=== PATIENT | female | born 1960 | race Caucasian/White ===

== ENCOUNTER 2019-05-18 16:57 | Inpatient (IN) | payer MEDICARE ==
[~2019-05-18] VITALS: Ht 162.6 cm; Wt 123.9 kg
[2019-05-18 18:03] LABS: RAPID INFLUENZA A Negative (Negative); RAPID INFLUENZA B Negative (Negative)
--- NOTE | 2019-05-18 18:09 | NUR ---
pt reports multi events of syncope or near syncope today has reported hx of chf noted avtar rate of 50 on monitor and hypotensive of 91/60
[2019-05-18 18:32] LABS: MEAN CORPUSCULAR HEMOGLOBIN 30.9 pg (27.0-34.8); MEAN CORPUSCULAR HGB CONC 33.9 g/dL (32.4-35.8); MEAN CORPUSCULAR VOLUME 91.1 fL (80-100); MEAN PLATELET VOLUME 7.7 fL (7.4-10.4); PLATELET COUNT 196 x10^3/uL (130-400); RED BLOOD COUNT 5.01 x10^6/uL (3.82-5.3); RED CELL DISTRIBUTION WIDTH 14.1 % (9.6-15.2)
[2019-05-18 18:34] LABS: BASOPHILS # (AUTO) 0.09 x10^3/uL (0-0.1); BASOPHILS % (AUTO) 1 % (0-1); EOSINOPHILS # (AUTO) 0.08 x10^3/uL (0-0.4); EOSINOPHILS % (AUTO) 1 % (1-7); LYMPHOCYTES # (AUTO) 2.94 x10^3/uL (1-3.4); LYMPHOCYTES % (AUTO) 21 % (22-44); MD NO; MONOCYTES # (AUTO) 1.36 x10^3/uL (0.2-0.8); MONOCYTES % (AUTO) 10 % (2-9); NEUTROPHILS % (AUTO) 68 % (42-75)
--- NOTE | 2019-05-18 18:36 | NUR ---
ERP TO THE BS AT THIS TIME
[2019-05-18 18:40] LABS: ALANINE AMINOTRANSFERASE 30 U/L (12-78); ALBUMIN 3.9 g/dL (3.4-5.0); ANION GAP 8 mmol/L (5-15); CALCIUM 9.1 mg/dL (8.5-10.1); CHLORIDE 107 mmol/L (98-107); CREATININE 1.67 mg/dL (0.55-1.02)
[2019-05-18 18:45] LABS: ALKALINE PHOSPHATASE 74 U/L (45-117); BILIRUBIN,TOTAL 0.6 mg/dL (0.2-1.0); TOTAL PROTEIN 8.3 g/dL (6.4-8.2); TROPONIN I < 0.015 ng/mL (0.000-0.045)
--- NOTE | 2019-05-18 18:53 | NUR ---
REPORT REC, VS UPDATED
[2019-05-18] MEDS ORDERED: ONDANSETRON 2MG/ML, 2ML IVPush ONE (19:00)
[2019-05-18] MEDS ORDERED: SODIUM CHLORIDE 0.9% 1,000ML IVBOLUS ONE ×2 (19:00→22:00)
[2019-05-18] MEDS ORDERED: DIPHENHYDRAMINE 50 MG/ML, 1ML IVPush ONE (19:00)
[2019-05-18] MEDS ORDERED: METOCLOPRAMIDE 5 MG/ML, 2ML IVPush ONE (19:00)
[2019-05-18] MEDS ORDERED: ONDANSETRON 2MG/ML, 2ML ONE (19:23)
[2019-05-18] MEDS ORDERED: DIPHENHYDRAMINE 50 MG/ML, 1ML ONE (19:23)
[2019-05-18] MEDS ORDERED: METOCLOPRAMIDE 5 MG/ML, 2ML ONE (19:23)
--- NOTE | 2019-05-18 20:58 | NUR ---
UNSUCCESSFUL MINI CATH, WILL ATTEMPT AGAIN. PT REMAINS HYPOTENSIVE, AA AND O TIMES 4, PULSES PRESENT THROUGHOUT, IV VERY POSITIONAL, ENCOURAGE TO KEEP HEAD TURNED, BED REPOSITIONED TO WATCH TV AND GRANDDAUGHTER ON BOARD.
[2019-05-18 22:42] LABS: MICROSCOPIC AUTO
--- NOTE | 2019-05-18 22:42 | NUR ---
URINE SENT, FLUIDS INFUSING, PT EATING AND STATES THAT SHE IS FEELING BETTER AT THIS TIME
[2019-05-18 22:44] LABS: CULTURE INDICATED? YES
[2019-05-18] MEDS ORDERED: CIPROFLOXACIN/PMX 400MG/200ML 200 ML ONE (23:01)
[2019-05-18] MEDS ORDERED: ONDANSETRON ODT 4 MG PO PRN (23:30)
[2019-05-18] MEDS ORDERED: POLYETHYLENE GLYCOL 17 GM PACKET PO PRN (23:30)
[2019-05-18] MEDS ORDERED: ACETAMINOPHEN 325 MG TABLET PO PRN (23:30)
[2019-05-18] MEDS ORDERED: CIPROFLOXACIN/PMX 400MG/200ML 200 ML IV ONE (23:30)
[2019-05-18] MEDS ORDERED: BISACODYL 10 MG SUPP PR PRN (23:30)
[2019-05-18] MEDS ORDERED: OXYC-302 PO (23:34)
[2019-05-18] MEDS ORDERED: QUET100T4 PO (23:36)
[2019-05-18] MEDS ORDERED: GABA600T7 PO (23:36)
[2019-05-19 00:43] VITALS: BP 118/72
[2019-05-19] MEDS: QUETIAPINE 100MG TABLET PO SCH ×2 (00:52→20:13)
[2019-05-19] MEDS: GABAPENTIN 300 MG CAPSULE PO SCH ×3 (00:52→20:13)
[2019-05-19] MEDS: OXYcodone IR 5MG TABLET PO PRN ×6 (00:53→22:27)
[2019-05-19] MEDS: HEPARIN 5,000 UNITS/ML, 1ML SQ SCH ×4 (00:54→23:33)
[2019-05-19] MEDS: SODIUM CHLORIDE 0.9% 1,000 ML IV SCH ×3 (00:54→20:21)
[2019-05-19 06:02] LABS: ANION GAP 3 mmol/L (5-15); CALCIUM 8.2 mg/dL (8.5-10.1); CHLORIDE 111 mmol/L (98-107); CREATININE 1.18 mg/dL (0.55-1.02)
[2019-05-19 06:03] LABS: BASOPHILS # (AUTO) 0.07 x10^3/uL (0-0.1); BASOPHILS % (AUTO) 1 % (0-1); EOSINOPHILS # (AUTO) 0.18 x10^3/uL (0-0.4); EOSINOPHILS % (AUTO) 2 % (1-7); LYMPHOCYTES # (AUTO) 3.02 x10^3/uL (1-3.4); LYMPHOCYTES % (AUTO) 40 % (22-44); MD NO; MEAN CORPUSCULAR HEMOGLOBIN 31.1 pg (27.0-34.8); MEAN CORPUSCULAR VOLUME 91.5 fL (80-100); MEAN PLATELET VOLUME 7.5 fL (7.4-10.4); MONOCYTES # (AUTO) 0.61 x10^3/uL (0.2-0.8); MONOCYTES % (AUTO) 8 % (2-9); NEUTROPHILS # (AUTO) 3.73 x10^3/uL (1.8-6.8); NEUTROPHILS % (AUTO) 49 % (42-75); PLATELET COUNT 151 x10^3/uL (130-400); RED BLOOD COUNT 4.55 x10^6/uL (3.82-5.3)
[2019-05-19 07:24] VITALS: BP 138/68
[2019-05-19] MEDS: SENNA/DOCUSATE TABLET PO SCH (07:59)
[2019-05-19 10:43] LABS: MICROSCOPIC AUTO
[2019-05-19 10:47] LABS: CULTURE INDICATED? YES
[2019-05-19] MEDS: PROMETHAZINE 25 MG/ML, 1ML IM PRN ×2 (11:07→20:15)
[2019-05-19] MEDS ORDERED: TIZA4CAP PO (12:25)
[2019-05-19] MEDS ORDERED: TIZANIDINE 4MG TABLET PO PRN (13:30)
[2019-05-19 13:36] VITALS: BP 177/99
[2019-05-19] MEDS: ONDANSETRON 2MG/ML, 2ML IVPush PRN (14:55)
[2019-05-19] MEDS ORDERED: BUTA1CAP59 PO (17:10)
[2019-05-19 19:49] VITALS: BP 175/99
[2019-05-19 20:24] VITALS: BP 174/110
[2019-05-19] MEDS ORDERED: hydrALAzine 20 MG/ML, 1ML IV ONE (20:30)
[2019-05-19] MEDS ORDERED: BUTALB/APAP/CAFFEINE 50MG/325MG/40MG ONE (21:24)
[2019-05-19 21:30] VITALS: BP 168/75
[2019-05-19] MEDS: BUTALB/APAP/CAFFEINE 50MG/325MG/40MG PO PRN (21:35)
[2019-05-19] MEDS ORDERED: LEVOFLOXACIN/PMX 500MG/100ML 100 ML IV SCH (22:00)
[2019-05-20 01:55] VITALS: BP 147/90
[2019-05-20] MEDS: OXYcodone IR 5MG TABLET PO PRN ×3 (03:19→18:21)
[2019-05-20] MEDS: BUTALB/APAP/CAFFEINE 50MG/325MG/40MG PO PRN ×3 (04:41→19:37)
[2019-05-20] MEDS: SODIUM CHLORIDE 0.9% 1,000 ML IV SCH ×2 (04:41→19:38)
[2019-05-20] MEDS: PROCHLORPERAZINE 5 MG/ML, 2ML IV PRN ×3 (05:43→19:36)
[2019-05-20 07:15] LABS: BASOPHILS # (AUTO) 0.05 x10^3/uL (0-0.1); BASOPHILS % (AUTO) 1 % (0-1); EOSINOPHILS # (AUTO) 0.35 x10^3/uL (0-0.4); EOSINOPHILS % (AUTO) 6 % (1-7); LYMPHOCYTES # (AUTO) 2.13 x10^3/uL (1-3.4); LYMPHOCYTES % (AUTO) 39 % (22-44); MD NO; MEAN CORPUSCULAR HEMOGLOBIN 30.8 pg (27.0-34.8); MEAN CORPUSCULAR HGB CONC 33.5 g/dL (32.4-35.8); MEAN CORPUSCULAR VOLUME 91.9 fL (80-100); MEAN PLATELET VOLUME 7.2 fL (7.4-10.4); MONOCYTES # (AUTO) 0.54 x10^3/uL (0.2-0.8); MONOCYTES % (AUTO) 10 % (2-9); NEUTROPHILS # (AUTO) 2.42 x10^3/uL (1.8-6.8); NEUTROPHILS % (AUTO) 44 % (42-75); PLATELET COUNT 141 x10^3/uL (130-400); RED CELL DISTRIBUTION WIDTH 14.1 % (9.6-15.2)
[2019-05-20 07:20] LABS: ALANINE AMINOTRANSFERASE 21 U/L (12-78); ALBUMIN 3.3 g/dL (3.4-5.0); ANION GAP 7 mmol/L (5-15); CALCIUM 8.4 mg/dL (8.5-10.1); CHLORIDE 108 mmol/L (98-107); CREATININE 0.95 mg/dL (0.55-1.02)
[2019-05-20 07:21] VITALS: BP 172/104
[2019-05-20 07:22] LABS: ALKALINE PHOSPHATASE 67 U/L (45-117); BILIRUBIN,TOTAL 0.4 mg/dL (0.2-1.0)
[2019-05-20] MEDS: GABAPENTIN 300 MG CAPSULE PO SCH ×2 (07:59→19:37)
[2019-05-20] MEDS: SENNA/DOCUSATE TABLET PO SCH (07:59)
[2019-05-20] MEDS: HEPARIN 5,000 UNITS/ML, 1ML SQ SCH ×3 (08:00→23:29)
[2019-05-20] MEDS ORDERED: MAGNESIUM SULFATE PMX 2GM/50ML 50 ML IV ONE (08:30)
[2019-05-20] MEDS ORDERED: AMLODIPINE 5 MG TABLET PO SCH (11:30)
[2019-05-20 12:14] VITALS: BP 179/109
[2019-05-20] MEDS: FAMOTIDINE 20 MG/2 ML IVPush SCH ×2 (12:27→19:36)
[2019-05-20] MEDS: CHLORTHALIDONE 25 MG TABLET PO SCH (12:28)
[2019-05-20] MEDS ORDERED: methylPREDNISolone SOD SUCC 125 MG/2 ML IVPush ONE (12:30)
[2019-05-20] MEDS ORDERED: DIPHENHYDRAMINE 50 MG/ML, 1ML IVPush ONE (12:30)
[2019-05-20] MEDS ORDERED: OMNIPAQUE 350 MG/ML, 100ML BOTTLE ONE (14:04)
[2019-05-20] MEDS ORDERED: CIPROFLOXACIN/PMX 400MG/200ML 200 ML IV SCH (15:30)
[2019-05-20] MEDS ORDERED: MAGNESIUM CITRATE 300ML ORAL SOL PO ONE (15:30)
[2019-05-20] MEDS ORDERED: KETOROLAC 30 MG/1 ML IVPush PRN (15:30)
[2019-05-20] MEDS: BISACODYL 10 MG SUPP PR SCH (16:15)
[2019-05-20 18:30] LABS: RAPID INFLUENZA A Negative (Negative); RAPID INFLUENZA B Negative (Negative)
[2019-05-20] MEDS: SULFAMETH./TRIMETHOPRIM DS 800MG/160MG TABLET PO SCH (19:37)
[2019-05-20] MEDS: QUETIAPINE 100MG TABLET PO SCH (19:37)
[2019-05-20] MEDS: AMLODIPINE 5 MG TABLET PO SCH (19:37)
[2019-05-20 19:43] VITALS: BP 182/119
[2019-05-20 20:48] VITALS: BP 141/82
[2019-05-21] MEDS: BUTALB/APAP/CAFFEINE 50MG/325MG/40MG PO PRN ×2 (02:02→06:17)
[2019-05-21] MEDS: OXYcodone IR 5MG TABLET PO PRN ×4 (02:03→21:57)
[2019-05-21] MEDS: PROCHLORPERAZINE 5 MG/ML, 2ML IV PRN ×2 (02:03→08:09)
[2019-05-21 02:10] VITALS: BP 158/100
[2019-05-21] MEDS: SODIUM CHLORIDE 0.9% 1,000 ML IV SCH (03:56)
[2019-05-21] MEDS: ONDANSETRON 2MG/ML, 2ML IVPush PRN (06:17)
[2019-05-21 07:17] VITALS: BP 150/82
[2019-05-21] MEDS: HEPARIN 5,000 UNITS/ML, 1ML SQ SCH ×2 (08:09→20:10)
[2019-05-21] MEDS: AMLODIPINE 5 MG TABLET PO SCH ×2 (08:09→20:09)
[2019-05-21] MEDS: SULFAMETH./TRIMETHOPRIM DS 800MG/160MG TABLET PO SCH ×2 (08:09→20:09)
[2019-05-21] MEDS: SENNA/DOCUSATE TABLET PO SCH (08:09)
[2019-05-21] MEDS: FAMOTIDINE 20 MG/2 ML IVPush SCH (08:09)
[2019-05-21] MEDS: GABAPENTIN 300 MG CAPSULE PO SCH ×2 (08:09→20:09)
[2019-05-21] MEDS: BISACODYL 10 MG SUPP PR SCH (08:10)
[2019-05-21] MEDS: CHLORTHALIDONE 25 MG TABLET PO SCH (08:10)
[2019-05-21 08:29] LABS: BASOPHILS # (AUTO) 0.03 x10^3/uL (0-0.1); BASOPHILS % (AUTO) 0 % (0-1); EOSINOPHILS % (AUTO) 0 % (1-7); LYMPHOCYTES # (AUTO) 1.16 x10^3/uL (1-3.4); LYMPHOCYTES % (AUTO) 12 % (22-44); MD NO; MEAN CORPUSCULAR HEMOGLOBIN 31.2 pg (27.0-34.8); MEAN CORPUSCULAR VOLUME 91.6 fL (80-100); MONOCYTES # (AUTO) 0.71 x10^3/uL (0.2-0.8); MONOCYTES % (AUTO) 7 % (2-9); NEUTROPHILS # (AUTO) 7.91 x10^3/uL (1.8-6.8); NEUTROPHILS % (AUTO) 81 % (42-75); PLATELET COUNT 159 x10^3/uL (130-400); RED BLOOD COUNT 5.25 x10^6/uL (3.82-5.3); RED CELL DISTRIBUTION WIDTH 13.6 % (9.6-15.2)
[2019-05-21 08:37] LABS: ALANINE AMINOTRANSFERASE 26 U/L (12-78); ALBUMIN 3.9 g/dL (3.4-5.0); ANION GAP 6 mmol/L (5-15); CALCIUM 8.9 mg/dL (8.5-10.1); CHLORIDE 102 mmol/L (98-107); CREATININE 0.89 mg/dL (0.55-1.02)
[2019-05-21 08:40] LABS: ALKALINE PHOSPHATASE 76 U/L (45-117); BILIRUBIN,TOTAL 0.5 mg/dL (0.2-1.0); TOTAL PROTEIN 8.4 g/dL (6.4-8.2)
[2019-05-21 12:32] VITALS: BP 156/91
[2019-05-21] MEDS ORDERED: Sulfameth./Trimethoprim Ds PO (14:53)
[2019-05-21] MEDS ORDERED: AMLO-150 PO (14:53)
[2019-05-21] MEDS ORDERED: CHLO25TA PO (14:53)
[2019-05-21] MEDS ORDERED: ONDANSETRON ODT 4 MG ONE (15:11)
[2019-05-21] MEDS ORDERED: ONDANSETRON ODT 4 MG PO ONE (15:30)
[2019-05-21] MEDS ORDERED: PROCHLORPERAZINE 5 MG TABLET PO PRN (17:00)
[2019-05-21] MEDS ORDERED: MAALOX/HYOSCYAMINE/LIDOCAINE 45 ML BTL PO ONE (17:00)
[2019-05-21] MEDS ORDERED: DIPHENHYDRAMINE 50 MG/ML, 1ML IVPush ONE ×2 (17:30→22:30)
[2019-05-21] MEDS ORDERED: PROCHLORPERAZINE 5 MG/ML, 2ML IVPush ONE (17:30)
[2019-05-21] MEDS ORDERED: KETOROLAC 30 MG/1 ML IVPush ONE ×2 (17:30→22:30)
[2019-05-21] MEDS ORDERED: MAGNESIUM CITRATE 300ML ORAL SOL PO ONE (17:30)
[2019-05-21 18:31] VITALS: BP 145/79
[2019-05-21] MEDS: QUETIAPINE 100MG TABLET PO SCH (20:09)
[2019-05-21] MEDS ORDERED: FAMOTIDINE 40 MG TABLET ONE (21:47)
[2019-05-21] MEDS: FAMOTIDINE 20 MG TABLET PO SCH (21:56)
[2019-05-22 00:18] VITALS: BP 136/86
[2019-05-22] MEDS: SODIUM CHLORIDE 0.9% 1,000 ML IV SCH ×2 (03:39→10:16)
[2019-05-22] MEDS: HEPARIN 5,000 UNITS/ML, 1ML SQ SCH ×2 (04:36→13:50)
[2019-05-22] MEDS: BUTALB/APAP/CAFFEINE 50MG/325MG/40MG PO PRN (04:36)
[2019-05-22 04:59] LABS: BASOPHILS # (AUTO) 0.02 x10^3/uL (0-0.1); BASOPHILS % (AUTO) 0 % (0-1); EOSINOPHILS # (AUTO) 0.17 x10^3/uL (0-0.4); EOSINOPHILS % (AUTO) 2 % (1-7); LYMPHOCYTES # (AUTO) 2.59 x10^3/uL (1-3.4); LYMPHOCYTES % (AUTO) 31 % (22-44); MD NO; MEAN CORPUSCULAR HEMOGLOBIN 30.2 pg (27.0-34.8); MEAN CORPUSCULAR HGB CONC 33.1 g/dL (32.4-35.8); MEAN CORPUSCULAR VOLUME 91.2 fL (80-100); MEAN PLATELET VOLUME 7.1 fL (7.4-10.4); MONOCYTES % (AUTO) 8 % (2-9); NEUTROPHILS % (AUTO) 58 % (42-75); PLATELET COUNT 175 x10^3/uL (130-400); RED BLOOD COUNT 5.52 x10^6/uL (3.82-5.3); RED CELL DISTRIBUTION WIDTH 13.8 % (9.6-15.2)
[2019-05-22 05:09] LABS: ALANINE AMINOTRANSFERASE 28 U/L (12-78); ANION GAP 8 mmol/L (5-15); CALCIUM 8.8 mg/dL (8.5-10.1); CHLORIDE 102 mmol/L (98-107); CREATININE 1.16 mg/dL (0.55-1.02)
[2019-05-22 05:12] LABS: ALKALINE PHOSPHATASE 89 U/L (45-117); BILIRUBIN,TOTAL 0.5 mg/dL (0.2-1.0); TOTAL PROTEIN 8.2 g/dL (6.4-8.2)
[2019-05-22 07:02] VITALS: BP 136/90
[2019-05-22] MEDS ORDERED: FAMOTIDINE 40 MG TABLET ONE (08:08)
[2019-05-22] MEDS: SULFAMETH./TRIMETHOPRIM DS 800MG/160MG TABLET PO SCH (08:11)
[2019-05-22] MEDS: SENNA/DOCUSATE TABLET PO SCH (08:11)
[2019-05-22] MEDS: GABAPENTIN 300 MG CAPSULE PO SCH (08:11)
[2019-05-22] MEDS: FAMOTIDINE 20 MG TABLET PO SCH (08:11)
[2019-05-22] MEDS: AMLODIPINE 5 MG TABLET PO SCH (08:11)
[2019-05-22] MEDS: CHLORTHALIDONE 25 MG TABLET PO SCH (08:12)
[2019-05-22] MEDS: BISACODYL 10 MG SUPP PR SCH (08:14)
[2019-05-22] MEDS: OXYcodone IR 5MG TABLET PO PRN ×3 (08:20→15:55)
[2019-05-22] MEDS ORDERED: DIPHENHYDRAMINE 50 MG/ML, 1ML ONE (10:52)
[2019-05-22] MEDS ORDERED: METOCLOPRAMIDE 5 MG/ML, 2ML ONE (10:53)
[2019-05-22] MEDS ORDERED: KETOROLAC 30 MG/1 ML IV SCH (11:00)
[2019-05-22] MEDS ORDERED: DIPHENHYDRAMINE 50 MG/ML, 1ML IVPush ONE (11:00)
[2019-05-22] MEDS ORDERED: METOCLOPRAMIDE 5 MG/ML, 2ML IVPush ONE (11:00)
[2019-05-22 13:00] VITALS: BP 129/90
[2019-05-22] MEDS ORDERED: SENN8.6T98 PO (14:40)
[2019-05-22] MEDS ORDERED: POLY17PO5 PO (14:40)
== END 2019-05-22 17:33 | disposition home or self-care (01) | DRG 871 ==
LOC: ED 21:22 → EDIP 23:01 → 4WST 23:57
PROVIDERS: ADMIT Internal Medicine; ATTEND Hospitalist
PROC: 0T9B70Z Drainage of Bladder with Drainage Device, Via Natural or Artificial Opening (ICD-10-PCS; principal; 2019-05-19)
DX: A41.9 Sepsis, unspecified organism (principal); N17.0 Acute kidney failure with tubular necrosis; Z68.42 Body mass index [BMI] 45.0-49.9, adult; E87.2 Acidosis; N12 Tubulo-interstitial nephritis, not specified as acute or chronic; E86.1 Hypovolemia; E86.0 Dehydration; G62.9 Polyneuropathy, unspecified; B96.20 Unspecified Escherichia coli [E. coli] as the cause of diseases classified elsewhere; E66.01 Morbid (severe) obesity due to excess calories; Z88.6 Allergy status to analgesic agent; Z88.8 Allergy status to other drugs, medicaments and biological substances; G43.909 Migraine, unspecified, not intractable, without status migrainosus; I10 Essential (primary) hypertension; I49.3 Ventricular premature depolarization; K59.00 Constipation, unspecified; Z79.899 Other long term (current) drug therapy; Z88.1 Allergy status to other antibiotic agents
CPT/HCPCS: 36415; 70450; 71045; 74177; 80048; 80053; 81001; 83605; 83735; 84100; 84145; 84484; 85025; 87040; 87077; 87086; 87186; 87400; 93005; 93306; 93880; 96361; 96374; 96375; 99285; G0378; J0744; J1644; J1885; J2405; J2550; Q0162; Q9967; J0360; J0780; J1200; J2765; J2930; J3475; J3490; J7030; Q0164

== ENCOUNTER 2019-12-08 12:29 | Outpatient (CLI) | payer MEDICARE ==
[~2019-12-08 12:29] MED LIST: AMLO-150 PO; BUTA1CAP59 PO; CHLO25TA PO; GABA600T7 PO; OXYC-302 PO; POLY17PO5 PO; QUET100T4 PO; SENN8.6T98 PO; Sulfameth./Trimethoprim Ds PO; TIZA4CAP PO
[2019-12-08] MEDS ORDERED: GABA300C PO (12:52)
[2019-12-08] MEDS ORDERED: AMLO-150 PO (12:52)
[2019-12-08] MEDS ORDERED: AMIT50TA PO (12:52)
[2019-12-08] MEDS ORDERED: OXYC-307 PO (12:52)
[2019-12-08 14:08] LABS: BASOPHILS # (AUTO) 0.03 x10^3/uL (0-0.1); BASOPHILS % (AUTO) 1 % (0-1); EOSINOPHILS # (AUTO) 0.18 x10^3/uL (0-0.4); EOSINOPHILS % (AUTO) 3 % (1-7); LYMPHOCYTES % (AUTO) 28 % (22-44); MD NO; MEAN CORPUSCULAR HEMOGLOBIN 30.4 pg (27.0-34.8); MEAN CORPUSCULAR HGB CONC 34.1 g/dL (32.4-35.8); MEAN CORPUSCULAR VOLUME 89.1 fL (80-100); MEAN PLATELET VOLUME 8.5 fL (7.4-10.4); MONOCYTES # (AUTO) 0.39 x10^3/uL (0.2-0.8); MONOCYTES % (AUTO) 7 % (2-9); NEUTROPHILS # (AUTO) 3.71 x10^3/uL (1.8-6.8); NEUTROPHILS % (AUTO) 62 % (42-75); PLATELET COUNT 140 x10^3/uL (130-400); RED BLOOD COUNT 4.94 x10^6/uL (3.82-5.3); RED CELL DISTRIBUTION WIDTH 13.1 % (9.6-15.2)
[2019-12-08 14:20] LABS: ALBUMIN 3.8 g/dL (3.4-5.0); ANION GAP 6 mmol/L (5-15); CALCIUM 8.8 mg/dL (8.5-10.1); CHLORIDE 111 mmol/L (98-107); CREATININE 0.75 mg/dL (0.55-1.02); TOTAL IRON BINDING CAPACITY 332 mcg/dL (250-450)
[2019-12-08 14:46] LABS: % IRON SATURATION 25 % (20-55); ALANINE AMINOTRANSFERASE 22 U/L (12-78); ALKALINE PHOSPHATASE 74 U/L (45-117); BILIRUBIN,TOTAL 0.3 mg/dL (0.2-1.0); IRON LEVEL 83 mcg/dL (50-170); PREALBUMIN 28.6 mg/dL (20.0-40.0); TOTAL PROTEIN 7.4 g/dL (6.4-8.2); TRANSFERRIN 233 mg/dL (200-360)
== END 2019-12-08 23:59 | disposition home or self-care (01) ==
LOC: STAR 12:29
PROVIDERS: ATTEND Thoracic Surgery (Cardiothoracic Vascular Surgery)
DX: Z01.818 Encounter for other preprocedural examination (principal); Z11.59 Encounter for screening for other viral diseases
CPT/HCPCS: 36415; 71046; 80053; 82306; 82607; 82728; 83540; 83550; 83970; 84134; 84425; 84466; 85025; 87635; 93005

== ENCOUNTER 2019-12-13 07:25 | Inpatient (IN) | payer MEDICARE ==
[~2019-12-13] VITALS: Ht 162.6 cm; Wt 109.7 kg
[~2019-12-13 07:25] MED LIST changes: +AMIT50TA PO; +BUPIVACAINE/PF-EPI 0.5% 1:200K ONE; +GABA300C PO; +OXYC-307 PO
[2019-12-13] MEDS ORDERED: FENTANYL PF 250 MCG/5ML ONE (08:08)
[2019-12-13] MEDS ORDERED: PROPOFOL 50 ML ONE (08:08)
[2019-12-13] MEDS ORDERED: LACTATED RINGERS 1,000 ML IV SCH (08:09)
[2019-12-13] MEDS ORDERED: LIDOCAINE-MPF 2% ,5ML ONE ×3 (08:09)
[2019-12-13] MEDS ORDERED: CHLORHEXIDINE 15 ML UDC MM ONE (08:30)
[2019-12-13] MEDS ORDERED: LIDOCAINE-MPF 1%, 2ML INFIL ONE (08:30)
[2019-12-13 09:10] LABS: CHOL/HDL RATIO 2.9
[2019-12-13] MEDS ORDERED: REMIFENTANIL 1 MG ONE (09:13)
[2019-12-13] MEDS ORDERED: EPHEDRINE 50 MG/ML, 1ML ONE (09:30)
[2019-12-13] MEDS ORDERED: SUGAMMADEX 200 MG/2 ML IVPush ONE (09:30)
[2019-12-13] MEDS ORDERED: BUPIVACAINE/PF-EPI 0.5% 1:200K INFIL ONE (09:44)
[2019-12-13] MEDS ORDERED: NEOSTIGMINE 1 MG/ML, 10ML ONE (09:55)
[2019-12-13] MEDS ORDERED: ROCURONIUM 10MG/ML,5ML ONE ×2 (09:55→09:59)
[2019-12-13] MEDS ORDERED: PROPOFOL 10 MG/ML, 20ML ONE (09:55)
[2019-12-13] MEDS ORDERED: GLYCOPYRROLATE 0.2MG/1ML, 5ML ONE (09:55)
[2019-12-13] MEDS ORDERED: DEXAMETHASONE 4 MG/ML, 1ML ONE (09:55)
[2019-12-13] MEDS ORDERED: CEFAZOLIN 1,000 MG ONE (09:55)
[2019-12-13] MEDS ORDERED: ONDANSETRON 2MG/ML, 2ML ONE (09:55)
[2019-12-13] MEDS ORDERED: FENTANYL PF 100 MCG/2ML ONE ×2 (10:27→10:50)
[2019-12-13] MEDS: FENTANYL PF 100 MCG/2ML IV PRN ×4 (10:28→10:57)
[2019-12-13] MEDS: FAMOTIDINE 20 MG/2 ML IVPush SCH ×2 (10:30→20:07)
[2019-12-13] MEDS ORDERED: MIDAZOLAM 1 MG/ML, 2ML IV PRN (10:30)
[2019-12-13] MEDS ORDERED: PHENOL THROAT SPRAY BOTTLE MM PRN (10:30)
[2019-12-13] MEDS ORDERED: ALBUTEROL SULFATE 2.5 MG/3 ML NPPB PRN (10:30)
[2019-12-13] MEDS ORDERED: PROMETHAZINE 12.5 MG SUPP PR PRN (10:30)
[2019-12-13] MEDS: LACTATED RINGERS 1,000 ML IV SCH ×3 (10:30→23:55)
[2019-12-13] MEDS ORDERED: PROMETHAZINE 25 MG/ML, 1ML IVPush PRN (10:30)
[2019-12-13] MEDS ORDERED: hydrALAzine 20 MG/ML, 1ML IVPush PRN (10:30)
[2019-12-13] MEDS ORDERED: OXYcodone 5 MG/5 ML ORAL.SOL UDC PO PRN (10:30)
[2019-12-13] MEDS ORDERED: ENALAPRILAT 1.25 MG/ML, 2ML IV PRN (10:30)
[2019-12-13] MEDS: ACETAMINOPHEN 100 ML IVPB SCH ×2 (10:30→16:49)
[2019-12-13] MEDS ORDERED: ACETAMINOPHEN 325 MG TABLET PO PRN (10:30)
[2019-12-13] MEDS ORDERED: LABETALOL 5MG/ML, 20ML ONE (10:34)
[2019-12-13] MEDS ORDERED: PROMETHAZINE 25 MG/ML, 1ML ONE (10:34)
[2019-12-13] MEDS: LABETALOL 5MG/ML, 20ML IV PRN ×2 (10:35→10:53)
[2019-12-13] MEDS ORDERED: SCOPOLAMINE 1MG PATCH TD ONE ×3 (10:45→12:00)
[2019-12-13] MEDS ORDERED: METOCLOPRAMIDE 5 MG/ML, 2ML ONE (10:45)
[2019-12-13] MEDS ORDERED: HALOPERIDOL 5 MG/ML ONE (10:58)
[2019-12-13] MEDS ORDERED: METOCLOPRAMIDE 5 MG/ML, 2ML IVPush ONE (11:00)
[2019-12-13] MEDS ORDERED: HALOPERIDOL 5 MG/ML IV PRN (11:00)
[2019-12-13] MEDS ORDERED: HYDROmorphone 1 MG/ML, 1ML INJ ONE ×2 (11:09→12:06)
[2019-12-13] MEDS: HYDROmorphone 1 MG/ML, 1ML INJ IVPush PRN ×4 (11:11→12:16)
[2019-12-13] MEDS ORDERED: hydrALAzine 20 MG/ML, 1ML ONE ×2 (11:14→11:45)
[2019-12-13] MEDS: hydrALAzine 20 MG/ML, 1ML IV PRN ×2 (11:15→11:46)
[2019-12-13] MEDS ORDERED: METHOCARBAMOL 1,000 MG in DEXTROSE 5% 100 ML IV ONE (12:30)
[2019-12-13 14:22] VITALS: BP 171/110
[2019-12-13] MEDS: morphine SULFATE 10 MG/ML, 1ML IVPush PRN ×3 (14:31→20:15)
[2019-12-13] MEDS: ONDANSETRON 2MG/ML, 2ML IVPush PRN (16:11)
[2019-12-13] MEDS: LORazepam 2 MG/ML, 1ML IV PRN (16:56)
[2019-12-13] MEDS ORDERED: HYDROcodone/APAP 7.5-325MG/15ML UDC PO PRN (18:00)
[2019-12-13 19:43] VITALS: BP 148/93
[2019-12-13] MEDS: ENOXAPARIN 40 MG/0.4 ML SQ SCH (21:12)
[2019-12-13] MEDS: GABAPENTIN 300 MG CAPSULE PO SCH (21:12)
[2019-12-13] MEDS: PROMETHAZINE 25 MG/ML, 1ML IM PRN (21:13)
[2019-12-13 23:02] VITALS: BP 155/100
[2019-12-14] MEDS: morphine SULFATE 10 MG/ML, 1ML IVPush PRN ×3 (00:11→07:45)
[2019-12-14] MEDS: LORazepam 2 MG/ML, 1ML IV PRN (00:17)
[2019-12-14 03:05] VITALS: BP 142/95
[2019-12-14] MEDS: ONDANSETRON 2MG/ML, 2ML IVPush PRN (04:13)
[2019-12-14 05:00] LABS: ALBUMIN 4.1 g/dL (3.4-5.0); ANION GAP 8 mmol/L (5-15); CALCIUM 9.2 mg/dL (8.5-10.1); CHLORIDE 101 mmol/L (98-107)
[2019-12-14 05:01] LABS: CREATININE 0.75 mg/dL (0.55-1.02)
[2019-12-14 05:03] LABS: BASOPHILS # (AUTO) 0.02 x10^3/uL (0-0.1); BASOPHILS % (AUTO) 0 % (0-1); EOSINOPHILS % (AUTO) 0 % (1-7); LYMPHOCYTES # (AUTO) 1.09 x10^3/uL (1-3.4); LYMPHOCYTES % (AUTO) 11 % (22-44); MD NO; MEAN CORPUSCULAR HEMOGLOBIN 29.9 pg (27.0-34.8); MEAN CORPUSCULAR VOLUME 90.4 fL (80-100); MEAN PLATELET VOLUME 7.5 fL (7.4-10.4); MONOCYTES # (AUTO) 0.58 x10^3/uL (0.2-0.8); MONOCYTES % (AUTO) 6 % (2-9); NEUTROPHILS # (AUTO) 8.35 x10^3/uL (1.8-6.8); NEUTROPHILS % (AUTO) 83 % (42-75); PLATELET COUNT 228 x10^3/uL (130-400); RED BLOOD COUNT 5.44 x10^6/uL (3.82-5.3); RED CELL DISTRIBUTION WIDTH 13.4 % (9.6-15.2)
[2019-12-14] MEDS: LACTATED RINGERS 1,000 ML IV SCH ×3 (07:26→19:50)
[2019-12-14] MEDS: AMLODIPINE 5 MG TABLET PO SCH (08:08)
[2019-12-14] MEDS: FAMOTIDINE 20 MG/2 ML IVPush SCH ×2 (08:08→19:58)
[2019-12-14] MEDS: GABAPENTIN 300 MG CAPSULE PO SCH ×3 (08:08→19:59)
[2019-12-14] MEDS: DIPHENHYDRAMINE 50 MG/ML, 1ML IV PRN ×2 (08:08→11:33)
[2019-12-14 08:25] VITALS: BP 167/103
[2019-12-14] MEDS: HYDROmorphone 1 MG/ML, 1ML INJ IV PRN ×4 (11:33→19:59)
[2019-12-14 14:25] VITALS: BP 151/103
[2019-12-14] MEDS: ENOXAPARIN 40 MG/0.4 ML SQ SCH (19:59)
[2019-12-14 20:01] VITALS: BP 156/92
[2019-12-14] MEDS: PROMETHAZINE 25 MG/ML, 1ML IM PRN (20:12)
[2019-12-15] MEDS: LORazepam 2 MG/ML, 1ML IV PRN ×2 (00:54→11:00)
[2019-12-15] MEDS: HYDROmorphone 1 MG/ML, 1ML INJ IV PRN ×3 (00:54→07:55)
[2019-12-15 01:05] VITALS: BP 150/107
[2019-12-15] MEDS: LACTATED RINGERS 1,000 ML IV SCH ×2 (02:30→09:10)
[2019-12-15] MEDS ORDERED: METOPROLOL TARTRATE 50 MG TAB ONE (04:35)
[2019-12-15] MEDS ORDERED: METOPROLOL TARTRATE 50 MG TAB PO SCH (06:00)
[2019-12-15 06:57] VITALS: BP 125/79
[2019-12-15] MEDS: ONDANSETRON 2MG/ML, 2ML IVPush PRN ×2 (07:56→14:01)
[2019-12-15] MEDS ORDERED: METOPROLOL SUCCINATE 50 MG TAB.ER.24H PO SCH (09:00)
[2019-12-15] MEDS: GABAPENTIN 300 MG CAPSULE PO SCH (09:04)
[2019-12-15] MEDS: AMLODIPINE 5 MG TABLET PO SCH (09:04)
[2019-12-15] MEDS: FAMOTIDINE 20 MG/2 ML IVPush SCH (09:04)
[2019-12-15] MEDS: OXYcodone IR 5MG TABLET PO PRN ×2 (10:59→14:01)
[2019-12-15 12:13] VITALS: BP 99/66
== END 2019-12-15 15:55 | disposition home or self-care (01) | DRG 621 ==
LOC: ORIP 07:25 → 4NE 13:17
PROVIDERS: ADMIT Thoracic Surgery (Cardiothoracic Vascular Surgery); ATTEND Thoracic Surgery (Cardiothoracic Vascular Surgery)
PROC: 8E0W4CZ Robotic Assisted Procedure of Trunk Region, Percutaneous Endoscopic Approach (ICD-10-PCS; 2019-12-13)
PROC: 0DB64Z3 Excision of Stomach, Percutaneous Endoscopic Approach, Vertical (ICD-10-PCS; principal; 2019-12-13 10:00)
DX: E66.01 Morbid (severe) obesity due to excess calories (principal); Z68.42 Body mass index [BMI] 45.0-49.9, adult; F32.9 Major depressive disorder, single episode, unspecified; G47.30 Sleep apnea, unspecified; I10 Essential (primary) hypertension; G89.29 Other chronic pain; M54.9 Dorsalgia, unspecified; Z88.8 Allergy status to other drugs, medicaments and biological substances; Z88.4 Allergy status to anesthetic agent; Z88.1 Allergy status to other antibiotic agents; Z91.041 Radiographic dye allergy status
CPT/HCPCS: 36415; 80048; 80061; 82040; 85025; G0378; J0131; J0690; J1100; J1170; J1650; J2405; J2550; J2704; J2710; J3010; J0360; J1200; J1630; J2060; J2270; J2765; J2800; J3490; J7120